=== PATIENT | female | born 1945 | race Caucasian/White ===

== ENCOUNTER → 2020-01-02 15:51 | Outpatient (CLI) | payer MEDICARE, SELFPAY ==
[2017-06-29 13:55] VITALS: BMI 23.0
[2020-01-02 16:13] LABS: Absolute Neutrophil Count 5.8 X10^3/uL (2.0-7.7); Basophil# 0.03 X10^3/uL; Basophil% 0.4 % (0-1); Eosinophil# 0.04 X10^3/uL; Eosinophils% 0.5 % (0-5); Hematocrit 38.8 % (37-47); Lymphocyte % 15.9 % (19-41); Mean Corp Hgb Conc 30.9 g/dL (32-36); Mean Corpuscular Hgb 27.3 pg (27.0-32.0); Mean Corpuscular Volume 88.4 fL (81-99); Mean Platelet Vol. 11.7 fl (6.2-12.0); Monocyte# 0.47 X10^3/uL; Monocyte% 6.2 % (0-10); NRBC Flagged by Analyzer 0 % (0-5); Neutrophil % 76.6 % (47-70); Platelet Count 318 K/mm3 (150-450); RBC Distribution Width CV 13.2 % (11.6-14.6); RBC Distribution Width SD 42.7 fl (35.1-43.9); Red Blood Count 4.39 M/mm3 (4.2-5.4); White Blood Count 7.6 K/mm3 (4.4-11.0)
[2020-01-02 16:52] LABS: Erythrocyte Sedimentation Rate > 130 mm/hr (0-30)
== END ==
PROVIDERS: PCP Family Medicine; Referring Provider Ophthalmology; Visit Provider Ophthalmology
DX: M31.6 Other giant cell arteritis (principal)
CPT/HCPCS: 36415; 85025; 85652; 86140

== ENCOUNTER 2020-01-05 17:26 | Emergency (ER) | payer MEDICARE, SELFPAY ==
[2020-01-05 17:27] VITALS: BP 151/76; PULSE 55; RESP 18; TEMP 36.5; O2SAT 97; BMI 24.0
--- NOTE | 2020-01-05 18:51 | ED.DCSUM_ITS ---
- ER Visit Summary Date of Service: 01/05/20 Chief Complaint: Blurred vision to right eye History of Present Illness: The patient is a 74 F who presents with blurred vision to her right eye that patient saw her lighting engineering technician today who believes she has temporal arteritis. Patient had an outpatient sed rate and CRP done that were extremely elevated. Patient has been taking oral prednisone but when the lighting engineering technician saw the lab results he arranged for IV Solu-Medrol infusions for the next 2 days and referred the patient to the emergency department for infusion of Solu-Medrol today. He also arrange for a temporal artery biopsy within the next 7 to 10 days. Patient denies any loss of vision. Physical Examination: Vital signs are stable. Patient is afebrile. Patient is in no acute distress. Pupils are equal, round, and reactive to light bilaterally. Extraocular muscles are intact. Oral mucosa is pink and moist. Neck is supple. Trachea is midline. There is no JVD. Heart was regular rate and rhythm. Lungs are clear and equal bilaterally. Abdomen is soft and n ontender. Cranial nerves II through XII are intact. There are no focal motor or sensory deficits. Emergency Department Course and Treatment: Patient was given 1 g of Solu-Medrol IV here. Patient was instructed to follow-up for the next 2 days with IV Solu- Medrol infusions as scheduled. Patient was instructed to follow-up with her temporal artery biopsy as scheduled. Patient was instructed to return if worse in any way. Patient understood and was agreeable with the plan. All questions were answered. Disposition: Discharge home Impression: Temporal arteritis This note was generated with [employer] dictation software. It may contain incorrect words, spelling, and punctuation that were not noted in review of the chart prior to signing ED Disposition - Plan for ED Patient: Disposition: Home or Assisted Living Diagnosis: Temporal arteritis Instructions: ED Arteritis Temporal Referrals: Abdirashid Lynch MD [Primary Care Provider] - Keep Zackery appointment
[2020-01-05 19:10] VITALS: BP 145/61; PULSE 50; RESP 16; O2SAT 96
[2020-01-05 20:00] VITALS: BP 139/69; PULSE 52; RESP 18; TEMP 36.7; O2SAT 97
== END 2020-01-05 20:11 | disposition home or self-care (01) ==
LOC: ED 19:06
PROVIDERS: Emergency Provider Emergency Medicine; PCP Ophthalmology
DX: M31.6 Other giant cell arteritis (principal); I10 Essential (primary) hypertension; Z79.82 Long term (current) use of aspirin; Z79.899 Other long term (current) drug therapy; F17.200 Nicotine dependence, unspecified, uncomplicated
CPT/HCPCS: 96365; 96366; 99284; J7050; A4216; J2930

== ENCOUNTER → 2020-01-06 13:16 | Outpatient (CLI) | payer MEDICARE, SELFPAY ==
[2020-01-05 17:27] VITALS: BMI 24.0
[2020-01-06 13:48] VITALS: BP 136/63; PULSE 65; RESP 16; TEMP 36.7; BMI 25.4
[2020-01-06 15:19] VITALS: BP 134/56
== END ==
PROVIDERS: PCP Family Medicine; Referring Provider Ophthalmology; Visit Provider Ophthalmology
DX: M31.6 Other giant cell arteritis (principal)
CPT/HCPCS: 96365; 96366; J7050; A4216; J2930

== ENCOUNTER → 2020-01-07 13:17 | Outpatient (CLI) | payer MEDICARE, SELFPAY ==
[2020-01-05 17:27] VITALS: BMI 24.0
[2020-01-06 13:48] VITALS: BMI 25.4
[2020-01-07 13:24] VITALS: BP 138/89; PULSE 65; RESP 18; TEMP 37.2; O2SAT 97; BMI 25.4
[2020-01-07 15:17] VITALS: BP 140/69; PULSE 60; RESP 16
== END ==
PROVIDERS: PCP Ophthalmology; Referring Provider Ophthalmology; Visit Provider Ophthalmology
DX: M31.6 Other giant cell arteritis (principal)
CPT/HCPCS: 96365; 96366; J7050; A4216; J2930

== ENCOUNTER 2020-01-09 07:18 | Day surgery (SDC) | payer MEDICARE, SELFPAY ==
[2020-01-06 13:48] VITALS: BMI 25.4
[2020-01-08 10:31] VITALS: BMI 25.4
[2020-01-08 15:22] LABS: Probe Check PASS; Specimen Processing Control PASS
[2020-01-09] VITALS (7 sets, daily range): BP systolic 146–158; BP diastolic 61–73; PULSE 42–45; RESP 16–18; TEMP 36.4–37.7; O2SAT 98–100; BMI 24.4
--- NOTE | 2020-01-09 | TEM_PTH ---
PATIENT: HOPE APODACA LOC: [facility] U#:[id number] AGE/SX: 74/F ROOM: RE01/09/[address]: Dr. Pancho Farrar MD : 1945 BED: DIS: 01/09/2020 SPEC #: [id number] RECD: 01/09/20 13:02 STATUS: JANELL FERNANDO #: [id number] DIANA: 01/09/20 00:[address]: Pancho Farrar DEPT: SURGICAL PATHOLOGY RECD BY: Mick Wren ENTERED: 01/09/20 13:02 SP TYPE: TEMPORAL OTHR DR: MD Dr. Abdirashid Harrison MD Tissues: Temporal region Procedures: Elastin Stain (control) Special Stain Group II Surgery Specimen Level IV HEADER OPERATION: Temporal artery biopsy PRE-OP DIAGNOSIS: Right temporal arteritis TISSUE SUBMITTED: Right temporal artery biopsy MICROSCOPIC DIAGNOSIS Right temporal artery, biopsy: Consistent with giant cell arteritis. See microscopic description and comment. ABBEY:marleny 01/12/20 COMMENT Correlation with clinical findings and appropriate follow up are necessary. The results are reported to Dr. Farrar's office on 01/12/20 at 9:45 a.m. Case has been reviewed in consultation with Dr. Smith who concurs with the above diagnosis. IDC:AM MICROSCOPIC DESCRIPTION Slides are reviewed. The specimen shows a segment of blood vessels with focal transmural and perivascular chronic inflammatory cell infiltrates consisting of lymphocytes, histiocytes and giant cells. The inflammatory cell infiltrates are more prominent in the media of blood vessels. Mild perivascular infiltrate is noted. Elastic stain with matched control is used in the evaluation and shows fragmentation of elastic fibrin in the vessel wall. Mild to moderate intimal hyperplasia is also noted. GROSS DESCRIPTION Received in fixative is one container labeled with the patient's name and designated right temporal artery biopsy. The specimen consists of a tubular piece of menendez soft tissue measuring 2 cm in length and 0.1 cm in diameter. The entire specimen is submitted in one cassette. It will be serially sectioned at the time of embedding. / ABBEY:marleny 01/09/20 TC:3 CPT: 10787, 37713
[2020-01-09] MEDS: Lactated Ringers 1,000 ML 100 ML IV (07:59)
--- NOTE | 2020-01-09 08:58 | PCM.HP.BLA ---
Problem List (1) Temporal arteritis Status: Acute History and Physical Date of Admission: 01/09/20 Intake Visit Reasons: Temporal artery biopsy Chief Complaint: temporal artery biopsy Photo Checker And Assembler Required: No Is patient in pain?: No Allergies No Known Allergies Allergy (Verified 01/08/20 10:27) Medications amlodipine 5 mg tablet 5 mg PO DAILY 01/08/20 [History Confirmed 01/08/20] aspirin 81 mg tablet,delayed release 81 mg PO DAILY 01/08/20 [History Confirmed 01/08/20] atenolol 25 mg tablet 25 mg PO DAILY 01/08/20 [History Confirmed 01/08/20] lisinopril 10 mg tablet 30 mg PO DAILY tab 01/08/20 [History Confirmed 01/08/20] prednisone 20 mg tablet 20 mg PO TID tab 01/08/20 [History Confirmed 01/08/20] [facility] Medical History (Updated 01/08/20 @ 10:[address] Pancho Farrar MD) Temporal arteritis (Acute) Anxiety (Acute) Arthritis (Acute) Rheumatoid arthritis (Acute) Hypertension (Chronic) Surgical History (Updated 01/08/20 @ 10:16 by Karey Etienne) History of left cataract surgery (Acute) Family History (Updated 01/08/20 @ 10:19 by Karey Etienne) Father Heart disease Mother Hypertension Grandmother Hypertension CVA (cerebral vascular accident) Social History (Updated 01/08/20 @ 10:[address] Pancho Farrar MD) Smoking Status: Never smoker alcohol intake: never substance use type: does not use HPI HPI HPI: HOPE APODACA, is a 74 F who presents to the office today for surgical consultation regarding potential temporal arteritis and request for a right temporal artery biopsy. The patient is referred by her forestry fire aid Dr. Nicolas Hart and a written copy my surgical consult recommendations will return to him. By report the patient apparently recently had left cataract surgery. She acutely developed blurred vision of the right eye. She was noted to have marked elevation of her sed rate as well as papilledema on the right. She has now had 3 IV Solu-Medrol infusions through the [facility] emergency room. We actually have been trying to get her to come to the office for 3 days for consultation. It is of note that on January 02, 2020 her sed rate was greater than 130. CBC otherwise unremarkable. Her C-reactive protein was 55.9. She does not really complain of any right buddhist discomfort or headache. HPI HPI HPI: HOPE APODACA, is a 74 F who presents to the office today for ROS General General: No weight change, appetite, fatigue, colon cancer, breast cancer or weakness HEENT HEENT: Yes eye surgery; no difficulty swallowing, eye injury, swollen glands or hoarseness Endo Endocrine: No thyroid disease, diabetes mellitus, thyroid cancer, Hair loss, heat intolerance or cold intolerance Skin Skin: No rash or changing moles Breast Breast: No left breast lump, right breast lump, nipple discharge, breast pain, abnormal mammogram, abnormal US or breast enlargement Musc Musculoskeletal: Yes arthritis and rheumatoid arthritis; no back problems, gout or joint pain Cardio Cardiovascular: Yes high blood pressure; no murmur, pacemaker, heart disease, atrial fibrillation, heart attack, heart stent, palpitations, shortness of breat with exertion or chest pain Psych Psychiatric: Yes anxiety; no depression or hearing voices Resp Respiratory: No shortness of breath, No sleep apnea, No cough, No COPD, No asthma, No emphysema, No wheezing Gastro Gastrointestinal: No abdominal pain, No nausea or vomiting, No diarrhea, No constipation, No blood in stool, No acid reflux, No hemorrhoids, No ulcers, No gallbladder problem, No black,tarry stools Brett Hematologic: No blood thinners, No blood disorders, No bleeding, No anemia, No blood clots Neuro Neurologic: No system reviewed and no additional complaints, except as docu, No as per HPI, No abnormal walking, No abnormal hearing, No abnormal movements, No abnormal speech, No behavioral changes, No burning sensations, No confusion, No seizure-like activity, No unsteadiness, No dizziness, No localized weakness, No frequent falls, No headache(s), No lack of coordination, No loss of vision, No memory loss, No numbness, No other visual disturbances, No radiating pain, No restless legs, No sensory deficit, No fainting, No tingling, No tremor(s), No weakness, No other Exam Const General: cooperative, comfortable Nutritional Appearance: average body habitus Orientation: alert HENMT Other: Right temporal artery is palpable at 1-2+. Left temporal artery is 3+. There is no particular ropiness on the right there is no erythema no particular tenderness Chest Chest palpation & inspection: normal inspection of the chest Breast Palpation: No nipple discharge Resp Effort & Inspection: normal respiratory effort Auscultation: clear to auscultation bilaterally Cardio Rate: regular rate Rhythm: regular rhythm Heart Sounds: no murmurs GI Palpation: soft Extrem General: no calf tenderness Psych Affect: normal affect Assessment & Plan Problems 1. Temporal arteritis M31.6 Plan 74-year-old female. Clinical suspicion of right temporal arteritis. With the patient's daughter present of discuss right temporal artery biopsy. I anticipate performing this with monitored anesthesia care and local anesthetic. I have discussed the technique, benefit, risks, alternatives. We will have her not take her aspirin tomorrow morning. We will have her hold her prednisone tomorrow morning until after the procedure. She has had an opportunity to ask and have questions answered. We will try to expedite the biopsy technique. I appreciate the opportunity of assisting with her surgical care Cc: Dr. Nicolas Hart and Dr. Abdirashid Farrar M.D., F.A.C.S. Coding Level of Care Code 05735 Diagnoses Temporal arteritis M31.6 01/08/20 1040 <Electronically signed by Pancho Farrar MD> Date Pancho Farrar MD I have re-examined the patient. There are no clinical changes since date of exam. Procedure Criteria Procedure Type: Essential Procedure Essential: Yes Criteria Statement: On 10/21/2019 the [facility] ([facility]) Public Order signed by [facility] Director Lesley Albright M.D., regarding the Management of Non-Essential Surgeries and Procedures for the purpose of preserving Personal Protective Equipment (PPE) and critical hospital capacity and resources within [place] went into effect as of 10/22/2019 at 5:00PM. According to the [facility] Public Order: This action will remain in full force and effect until the State of Emergency declared by the Governor no longer exists or the Director of the [facility] rescinds or modifies this Order. This [facility] order stated all non-essential or elective surgeries and procedures that utilize PPE should be delayed unless there is undue risk to the current or future health of a patient. After reviewing the aforementioned [facility] Public Order and the patient's clinical case, I have determined that the scheduled procedure meets the criteria to go forward. Risk to Patient if Procedure Delayed: Risk of rapidly worsening to severe symptoms if delayed
[2020-01-09] MEDS: Lubricating Jelly 60 GM Tube 30 GM TOPICAL (09:28)
[2020-01-09] MEDS: Bupivacaine Mpf 0.5% 30 ML VIAL (09:35)
--- NOTE | 2020-01-09 10:15 | PCM.OPRPT ---
Problem List (1) Temporal arteritis Status: Acute Report of Operation Date of Procedure: 01/09/20 Pre-Operative Diagnosis: Right temporal arteritis Post-Operative Diagnosis: Pathology pending Surgery/Procedure Performed:: Right temporal artery biopsy Description of Surgical Findings:: Timeout and informed consent was obtained. 74-year-old female was taken the operating placed by the table underwent monitored anesthesia care. The right confucianism area was clipper and Betadine prepped. 1% lidocaine mixed 50-50 with 0.5% Marcaine was used as a local anesthetic. Throughout the procedure 9 cc was used. Perirectal he has a vertical incision was created over the palpable pulse sharp dissection carried down through the subcutaneous tissue fascia incised temporal artery identified with very tedious careful sharp and blunt dissection was dissected free. More cephalad the artery appeared to be more firm and fibrosed. I dissected free 4 cm. I secured it proximally and distally with 4-0 Vicryl ligatures. Side branches were secured with needed with hemoclips. The specimen was immediately submitted in formalin. Hemostasis was intact. The wound was closed with a running septic or 5-0 Vicryl. Dermabond was applied followed by Telfa and tape dressing. Sponge and instrument and needle counts were reported to the surgeon to be correct. Blood loss was minimal. Specimens right temporal artery. Drains none. Blood loss minimal. Pancho Farrar M.D., F.A.C.S. Type of Anesthesia:: Local MAC Anesthesiologist: Denny Medina
--- NOTE | 2020-01-09 11:56 | DCINST_ITS ---
Discharge Diet: Light diet - advance as tolerated - if you have questions about your diet instructions, please talk to you doctor. Discharge Activity: May Not Drive - for 1 day or while taking narcotic pain medicine. May shower in (days): 1 Lifting Restrictions: 10 pounds Call your doctor if your incision/area has: Continuous Slow Oozing, Sudden Increased Bleeding, Increased Pain/ Swelling, Increased Redness, Foul Smelling Discharge Call your doctor if you observe: Fever of 101 or Higher Suture Line Care: Avoid Pulling/Pushing, Avoid Pinching/Bending Additional Dressing/Incision Instructions:: You may remove the gauze dressing tomorrow. You may carefully shower over the surgical glue. Pat the incision dry. The surgical glue should wear off in approximately 1 to 2 weeks. Additional Instructions: You may take all of your routine medicines today except your low-dose aspirin. If there are no issues with bleeding you may resume your 81 mg aspirin tomorrow Allergies/Adverse Reactions: Allergies No Known Allergies Allergy (Verified 01/09/20 07:40) Medications to take at Discharge amlodipine 5 mg tablet 5 mg PO DAILY 01/08/20 aspirin 81 mg tablet,delayed release 81 mg PO DAILY 01/08/20 atenolol 25 mg tablet 25 mg PO DAILY 01/08/20 lisinopril 10 mg tablet 30 mg PO DAILY tab 01/08/20 prednisone 20 mg tablet 20 mg PO TID tab 01/08/20 Acetaminophen [Tylenol Tablet] 650 mg PO Q6H PRN PRN tab 01/09/20 Hydrocodone Bitart/Apap 5-325 [[place] 5/325] 1 - 2 tab PO Q4H PRN PRN 2 Days #4 tab 01/09/20 The following prescriptions were given: Hydrocodone Bitart/Apap 5-325 [[place] 5/325] 1 - 2 tab PO Q4H PRN PRN 2 Days #4 tab PRN Reason: Pain Score 1-05/15 Transmission Status: Received by [facility]/pharmacy #[id number] Primary Care Physician: Abdirashid Lynch MD [Primary Care Provider] - Test Results: Test results from this visit will be discussed in further detail at your follow- up appointment, if applicable. Please Follow Up With: Pancho Farrar MD - [phone]
== END 2020-01-09 12:15 | disposition home or self-care (01) ==
LOC: SDC 07:19 → AC 07:20
PROVIDERS: Physician Assistant; PCP Family Medicine; Referring Provider Surgery; Visit Provider Surgery
PROC: (CPT 37609; principal; 2020-01-09 09:15)
DX: M31.6 Other giant cell arteritis (principal); Z11.59 Encounter for screening for other viral diseases; I10 Essential (primary) hypertension; F41.9 Anxiety disorder, unspecified; M06.9 Rheumatoid arthritis, unspecified; Z78.0 Asymptomatic menopausal state; Z79.82 Long term (current) use of aspirin; Z79.899 Other long term (current) drug therapy; F17.200 Nicotine dependence, unspecified, uncomplicated
CPT/HCPCS: 00352; 37609; 87635; 88305; 88313; G2023; J7120; U0003

== ENCOUNTER → 2020-01-20 12:55 | Outpatient (CLI) | payer MEDICARE, SELFPAY ==
[2020-01-09 07:46] VITALS: BMI 24.4
--- NOTE | 2020-01-20 13:25 | RAD_ITS ---
STUDY: X-RAY CHEST REASON FOR EXAM: Female, 74 years old. Hypertension TECHNIQUE: PA and lateral views of the chest. COMPARISON: None. FINDINGS: The lungs are hyperexpanded with chronic interstitial changes, no superimposed acute pulmonary process. There is no demonstrated pleural abnormality. Normal size heart. Normal mediastinum and ade. Normal visualized pulmonary arteries. Normal visualized aortic arch and descending thoracic aorta. Normal visualized thoracic spine. Normal visualized ribs, clavicles, and shoulders. There is no demonstrated abnormality of the visualized soft tissue structures of the upper abdomen. RAD/Chest PA and Lateral IMPRESSION: Hyperexpanded lungs, no superimposed acute pulmonary process Electronically Signed: Oral Power MD at 16:47 EDT , Service support ,
[2020-01-20 13:58] LABS: Erythrocyte Sedimentation Rate 20 mm/hr (0-30)
[2020-01-20 14:02] LABS: Absolute Neutrophil Count 17.3 X10^3/uL (2.0-7.7); Basophil# 0.01 X10^3/uL; Basophil% 0.1 % (0-1); Hematocrit 39.7 % (37-47); Hemoglobin 12.5 g/dL (12.0-15.0); Lymphocyte % 1.7 % (19-41); Mean Corp Hgb Conc 31.5 g/dL (32-36); Mean Corpuscular Hgb 27.3 pg (27.0-32.0); Mean Corpuscular Volume 86.7 fL (81-99); Mean Platelet Vol. 13.3 fl (6.2-12.0); Monocyte# 0.37 X10^3/uL; NRBC Flagged by Analyzer 0 % (0-5); Neutrophil # 17.32 X10^3/uL (2.7-7.7); Neutrophil % 95.4 % (47-70); POSITIVE DIFFERENTIAL YES; Platelet Count 182 K/mm3 (150-450); RBC Distribution Width SD 48.7 fl (35.1-43.9); Red Blood Count 4.58 M/mm3 (4.2-5.4); White Blood Count 18.2 K/mm3 (4.4-11.0)
[2020-01-20 14:03] LABS: Differential Indicated SCAN CRITERIA MET
[2020-01-20 14:21] LABS: ALB/GLOB Ratio 0.9 RATIO (0.9-2.4); AST(SGOT) 12 U/L (15-37); Alanine Aminotransfer ALT/SGPT 23 U/L (13-56); Albumin, Serum 3.2 g/dL (3.2-5.0); Alkaline Phosphatase 93 U/L (45-117); Anion Gap 6 (5-15); BUN 24 mg/dL (7-18); CRP < 2.90 mg/L (0.0-3.0); Calcium,Total 8.7 mg/dL (8.5-10.1); Chloride 101 mmol/L (98-107); EST Glomerular Filtration Rate 58 mL/min (>60); Est Glom Filt Rate - Afr Amer 70 mL/min (>60); Globulin 3.5 g/dL (2.2-4.2); Glucose 154 mg/dL (74-106); Potassium 4.5 mmol/L (3.5-5.1); Protein, Total 6.7 g/dL (6.4-8.2); Rheumatoid Factor < 10.0 IU/mL (<15); Sodium Level 135 mmol/L (136-145)
[2020-01-20 14:51] LABS: Hepatitis B Surface Antibody Non-Reactive; Hepatitis B Surface Antigen Non-Reactive (Nonreactive); Hepatitis C Antibody Non-Reactive (Nonreactive)
[2020-01-23 12:07] LABS: QNTFERON TB Mitogen Value 0.19 IU/mL (.); QNTFERON TB Nil Value 0.03 IU/mL (.); QNTFERON TB1+ Ag Value 0.04 IU/mL (.); QNTFERON TB2+ Ag Value 0.02 IU/mL (.)
[2020-01-26 05:24] LABS: CCP IgG Antibodies 4 units (0-19); QNTIFERON TB Positive Criteria Indeterminate (Negative)
== END ==
PROVIDERS: PCP Family Medicine; Referring Provider Internal Medicine Rheumatology; Visit Provider Internal Medicine Rheumatology
DX: M31.6 Other giant cell arteritis (principal); M47.892 Other spondylosis, cervical region; I10 Essential (primary) hypertension
CPT/HCPCS: 36415; 71046; 80053; 85025; 85652; 86140; 86200; 86431; 86480; 86706; 86803; 87340

== ENCOUNTER → 2020-02-19 14:12 | Outpatient (CLI) | payer MEDICARE, SELFPAY ==
[2020-01-09 07:46] VITALS: BMI 24.4
[2020-02-19 14:54] LABS: Erythrocyte Sedimentation Rate 14 mm/hr (0-30)
[2020-02-19 15:40] LABS: CRP < 2.90 mg/L (0.0-3.0)
== END ==
PROVIDERS: PCP Family Medicine; Referring Provider Internal Medicine Rheumatology; Visit Provider Internal Medicine Rheumatology
DX: M31.6 Other giant cell arteritis (principal); M47.892 Other spondylosis, cervical region; I10 Essential (primary) hypertension
CPT/HCPCS: 36415; 85652; 86140

== ENCOUNTER → 2020-03-08 12:53 | Outpatient (CLI) | payer MEDICARE, SELFPAY ==
[2020-01-09 07:46] VITALS: BMI 24.4
[2020-03-08 14:00] LABS: Erythrocyte Sedimentation Rate 19 mm/hr (0-30)
[2020-03-08 14:25] LABS: CRP < 2.90 mg/L (0.0-3.0)
== END ==
PROVIDERS: PCP Family Medicine; Referring Provider Internal Medicine Rheumatology; Visit Provider Internal Medicine Rheumatology
DX: M31.6 Other giant cell arteritis (principal); Z79.899 Other long term (current) drug therapy; M47.892 Other spondylosis, cervical region; I10 Essential (primary) hypertension
CPT/HCPCS: 36415; 85652; 86140

== ENCOUNTER → 2020-03-24 13:55 | Outpatient (CLI) | payer MEDICARE, SELFPAY ==
[2020-01-09 07:46] VITALS: BMI 24.4
[2020-03-24 14:36] LABS: Erythrocyte Sedimentation Rate 13 mm/hr (0-30)
[2020-03-24 14:43] LABS: CRP < 2.90 mg/L (0.0-3.0)
== END ==
PROVIDERS: PCP Family Medicine; Referring Provider Internal Medicine Rheumatology; Visit Provider Internal Medicine Rheumatology
DX: M31.6 Other giant cell arteritis (principal); Z79.899 Other long term (current) drug therapy; M47.892 Other spondylosis, cervical region; I10 Essential (primary) hypertension
CPT/HCPCS: 36415; 85652; 86140

== ENCOUNTER → 2020-04-22 14:00 | Outpatient (CLI) | payer MEDICARE, SELFPAY ==
[2020-01-09 07:46] VITALS: BMI 24.4
[2020-04-22 15:03] LABS: Erythrocyte Sedimentation Rate 5 mm/hr (0-30)
[2020-04-22 15:17] LABS: CRP < 2.90 mg/L (0.0-3.0)
== END ==
PROVIDERS: PCP Family Medicine; Referring Provider Internal Medicine Rheumatology; Visit Provider Internal Medicine Rheumatology
DX: M31.6 Other giant cell arteritis (principal); Z79.899 Other long term (current) drug therapy; M47.892 Other spondylosis, cervical region; I10 Essential (primary) hypertension
CPT/HCPCS: 36415; 85652; 86140

== ENCOUNTER 2020-04-25 10:17 | Emergency (ER) | payer MEDICARE, SELFPAY ==
[2020-01-09 07:46] VITALS: BMI 24.4
[2020-04-25 10:19] VITALS: BP 147/73; PULSE 79; RESP 17; TEMP 36.9; O2SAT 100; BMI 24.8
--- NOTE | 2020-04-25 10:28 | ED.VIS.GEN ---
History of Present Illness Chief Complaint: Cellulitis Narrative: 75-year-old female with history of temporal cell arteritis currently being treated with an extended prednisone taper presents today because she has had some swelling in her legs due to her steroid use, and last night something fell out of the cabinet and hit her in the right tibia. There was a small break in the skin. Overnight this has become red and inflamed. She does not have any systemic signs or symptoms. She has no history of MRSA. - Past Medical History (1) Temporal arteritis Status: Chronic Past Medical History - Allergies and Home Meds Allergies/Adverse Reactions: Allergies No Known Allergies Allergy (Verified 04/25/20 10:18) Primary Care Physician: Abdirashid Lynch MD [Primary Care Provider] - Past Medical History: - - Pretension, rheumatoid arthritis, anxiety Surgical History: noncontributory Lives: Spouse/ Significant Other Smoking Status: Current every day smoker Alcohol: None Drugs: None Review of Systems General: Denies: Chills, Fever, Sweats Eyes: Denies: Visual changes - bilaterally, Diplopia ENT: Denies: Rhinorrhea, Sore throat Cardiovascular: Denies: Chest pain, Palpitations Respiratory: Denies: Dyspnea, Cough, Dyspnea on exertion Gastrointestinal: Denies: Abdominal pain, Nausea, Vomiting, Diarrhea, Melena, Hematochezia Genitourinary: Denies: Dysuria, Hematuria, Frequency Musculoskeletal: Reports: - - Lower extremity swelling Skin: Reports: Rash, - - Erythema over the right tibia with a small break in the skin. Neurological: Denies: Headache, Weakness Physical Exam Vital Signs/Narrative: Vital Signs Temp Pulse Resp BP Pulse Ox 04/25/20 10:19 98.4 F 79 17 147/73 H 100 Inital Vital Signs reviewed: Yes General: Well nourished, No Acute Distress Head: Normocephalic, Atraumatic ENT: Moist mucous membranes, No rhinorrhea Cardiovascular: Regular rate, Regular rhythm Respiratory: No distress, CTA bilaterally Extremities: Tenderness - Is to palpation over right anterior tibia. There is approximately a 10 x 10 cm area of erythema and warmth with a central small skin flap approximately half a centimeter. There is no fluctuance., Edema. Negative for: Calf Tenderness Skin: Rash, - - Rash as described above Neurological: Alert, Oriented x3 Psychological: Normal affect, Normal Mood Diagnostic/Tx/Re-eval - Medical Decision Making Patient has what looks to be early cellulitis on the right tibia likely due to the break in the skin last evening. She is also on steroids which makes her skin friable. Patient will be started on Keflex with the first dose given in the ED. She was also was prescribed bacitracin and counseled on dressing changes. She is given return precautions. Patient stable for discharge at this time. Impression: 1. Cellulitis right tibia ED Disposition - Plan for ED Patient: Disposition: Home or Assisted Living Instructions: Cellulitis Prescriptions: Bacitracin Ointment 1 applic TOPICAL BID 10 Days #1 tube Transmission Status: Pending to [id number] Cephalexin [Keflex] 500 mg PO Q6 #40 cap Transmission Status: Pending to [id number] Referrals: Abdirashid Lynch MD [Primary Care Provider] -
[2020-04-25] MEDS: Cephalexin 250 MG Capsule 500 MG PO (10:43)
[2020-04-25 10:44] VITALS: BP 147/73; PULSE 79; RESP 18
[2020-04-25 10:47] VITALS: BP 147/73; PULSE 79; RESP 18; TEMP 36.9; O2SAT 100
== END 2020-04-25 10:58 | disposition home or self-care (01) ==
LOC: ED 10:41
PROVIDERS: Emergency Provider Student in an Organized Health Care Education/Training Program; PCP Family Medicine
DX: L03.115 Cellulitis of right lower limb (principal); M31.6 Other giant cell arteritis; F41.9 Anxiety disorder, unspecified; M06.9 Rheumatoid arthritis, unspecified; Z79.899 Other long term (current) drug therapy; F17.200 Nicotine dependence, unspecified, uncomplicated
CPT/HCPCS: 99283

== ENCOUNTER → 2020-05-24 13:42 | Outpatient (CLI) | payer MEDICARE, SELFPAY ==
[2020-04-25 10:19] VITALS: BMI 24.8
[2020-05-24 14:04] LABS: Erythrocyte Sedimentation Rate 4 mm/hr (0-30)
[2020-05-24 14:24] LABS: CRP < 2.90 mg/L (0.0-3.0)
== END ==
PROVIDERS: PCP Family Medicine; Referring Provider Internal Medicine Rheumatology; Visit Provider Internal Medicine Rheumatology
DX: M31.6 Other giant cell arteritis (principal); Z79.899 Other long term (current) drug therapy; M47.892 Other spondylosis, cervical region; I10 Essential (primary) hypertension
CPT/HCPCS: 36415; 85652; 86140

== ENCOUNTER → 2020-06-28 13:39 | Outpatient (CLI) | payer MEDICARE, SELFPAY ==
[2020-06-28 15:19] LABS: CRP 4.64 mg/L (0.0-3.0)
[2020-06-28 15:29] LABS: Erythrocyte Sedimentation Rate 7 mm/hr (0-30)
== END ==
PROVIDERS: PCP Family Medicine; Referring Provider Internal Medicine Rheumatology; Visit Provider Internal Medicine Rheumatology
DX: M31.6 Other giant cell arteritis (principal); Z79.899 Other long term (current) drug therapy; M47.892 Other spondylosis, cervical region; I10 Essential (primary) hypertension
CPT/HCPCS: 36415; 85652; 86140

== ENCOUNTER → 2020-08-12 14:06 | Outpatient (CLI) | payer MEDICARE, SELFPAY ==
[2020-08-12 14:56] LABS: Erythrocyte Sedimentation Rate 13 mm/hr (0-30)
[2020-08-12 15:18] LABS: CRP < 2.90 mg/L (0.0-3.0)
== END ==
PROVIDERS: PCP Family Medicine; Visit Provider Internal Medicine Rheumatology
DX: M31.6 Other giant cell arteritis (principal); Z79.899 Other long term (current) drug therapy; M47.892 Other spondylosis, cervical region; I10 Essential (primary) hypertension
CPT/HCPCS: 36415; 85652; 86140

== ENCOUNTER → 2020-10-08 13:46 | Outpatient (CLI) | payer MEDICARE, SELFPAY ==
[2020-10-08 15:26] LABS: Erythrocyte Sedimentation Rate 6 mm/hr (0-30)
[2020-10-08 15:34] LABS: CRP < 2.90 mg/L (0.0-3.0)
== END ==
PROVIDERS: PCP Family Medicine; Referring Provider Internal Medicine Rheumatology; Visit Provider Internal Medicine Rheumatology
DX: M31.6 Other giant cell arteritis (principal); Z79.899 Other long term (current) drug therapy; M47.892 Other spondylosis, cervical region; I10 Essential (primary) hypertension
CPT/HCPCS: 36415; 85652; 86140

== ENCOUNTER → 2020-11-08 13:50 | Outpatient (CLI) | payer MEDICARE, SELFPAY ==
[2020-11-08 14:32] LABS: Erythrocyte Sedimentation Rate 12 mm/hr (0-30)
[2020-11-08 14:56] LABS: CRP < 2.90 mg/L (0.0-3.0)
== END ==
PROVIDERS: PCP Family Medicine; Referring Provider Internal Medicine Rheumatology; Visit Provider Internal Medicine Rheumatology
DX: M31.6 Other giant cell arteritis (principal); Z79.899 Other long term (current) drug therapy; M47.892 Other spondylosis, cervical region; I10 Essential (primary) hypertension
CPT/HCPCS: 36415; 85652; 86140

== ENCOUNTER → 2021-01-07 13:47 | Outpatient (CLI) | payer MEDICARE, SELFPAY ==
[2021-01-07 14:45] LABS: Erythrocyte Sedimentation Rate 10 mm/hr (0-30)
[2021-01-07 15:05] LABS: CRP 5.05 mg/L (0.0-3.0)
== END ==
PROVIDERS: PCP Family Medicine; Referring Provider Internal Medicine Rheumatology; Visit Provider Internal Medicine Rheumatology
DX: M31.6 Other giant cell arteritis (principal); Z79.899 Other long term (current) drug therapy; M47.892 Other spondylosis, cervical region; I10 Essential (primary) hypertension
CPT/HCPCS: 36415; 85652; 86140

== ENCOUNTER → 2021-03-09 13:47 | Outpatient (CLI) | payer MEDICARE, SELFPAY ==
[2021-03-09 16:23] LABS: CRP < 2.90 mg/L (0.0-3.0)
[2021-03-09 16:24] LABS: Erythrocyte Sedimentation Rate 6 mm/hr (0-30)
== END ==
PROVIDERS: PCP Family Medicine; Referring Provider Internal Medicine Rheumatology; Visit Provider Internal Medicine Rheumatology
DX: M31.6 Other giant cell arteritis (principal); Z79.899 Other long term (current) drug therapy; I10 Essential (primary) hypertension; M47.892 Other spondylosis, cervical region
CPT/HCPCS: 36415; 85652; 86140

== ENCOUNTER → 2021-05-09 13:46 | Outpatient (CLI) | payer MEDICARE, SELFPAY ==
[2021-05-09 15:30] LABS: CRP 4.14 mg/L (0.0-3.0)
[2021-05-09 15:38] LABS: Erythrocyte Sedimentation Rate 14 mm/hr (0-30)
== END ==
PROVIDERS: PCP Family Medicine; Referring Provider Internal Medicine Rheumatology; Visit Provider Internal Medicine Rheumatology
DX: M31.6 Other giant cell arteritis (principal); Z79.899 Other long term (current) drug therapy; M47.892 Other spondylosis, cervical region; I10 Essential (primary) hypertension
CPT/HCPCS: 36415; 85652; 86140

== ENCOUNTER → 2021-07-22 13:52 | Outpatient (CLI) | payer MEDICARE, SELFPAY ==
[2021-07-22 14:48] LABS: Erythrocyte Sedimentation Rate 10 mm/hr (0-30)
[2021-07-22 15:20] LABS: CRP < 2.90 mg/L (0.0-3.0)
== END ==
PROVIDERS: PCP Family Medicine; Referring Provider Internal Medicine Rheumatology; Visit Provider Internal Medicine Rheumatology
DX: M31.6 Other giant cell arteritis (principal); Z79.899 Other long term (current) drug therapy; M47.892 Other spondylosis, cervical region; I10 Essential (primary) hypertension
CPT/HCPCS: 36415; 85652; 86140

== ENCOUNTER 2021-10-07 13:52 | Outpatient (CLI) | payer MEDICARE, SELFPAY ==
[2021-10-07 15:34] LABS: Erythrocyte Sedimentation Rate 10 mm/hr (0-30)
[2021-10-07 15:47] LABS: CRP < 2.90 mg/L (0.0-3.0)
== END 2021-10-07 23:59 | disposition home or self-care (01) ==
LOC: LAB 13:54
PROVIDERS: PCP Family Medicine; Referring Provider Internal Medicine Rheumatology; Visit Provider Internal Medicine Rheumatology
DX: M31.6 Other giant cell arteritis (principal); M47.892 Other spondylosis, cervical region; I10 Essential (primary) hypertension; Z79.899 Other long term (current) drug therapy
CPT/HCPCS: 36415; 85652; 86140

== ENCOUNTER → 2022-01-09 | Outpatient (CLI) | payer MEDICARE, SELFPAY ==
[2022-01-09 15:37] LABS: Absolute Lymphocyte Count 1.15 X10^3/uL (0.83-4.51); Absolute Neutrophil Count 8.2 X10^3/uL (2.0-7.7); Basophil# 0.02 X10^3/uL; Basophil% 0.2 % (0-1); Eosinophil# 0.03 X10^3/uL; Eosinophils% 0.3 % (0-5); Hematocrit 39.6 % (37-47); Hemoglobin 12.8 g/dL (12.0-15.0); Lymphocyte # 1.15 X10^3/ul (0.83-4.51); Lymphocyte % 11.5 % (19-41); Mean Corp Hgb Conc 32.3 g/dL (32-36); Mean Corpuscular Hgb 29.3 pg (27.0-32.0); Mean Corpuscular Volume 90.6 fL (81-99); Mean Platelet Vol. 13.7 fl (6.2-12.0); Monocyte# 0.48 X10^3/uL; Monocyte% 4.8 % (0-10); NRBC Flagged by Analyzer 0 % (0-5); Neutrophil # 8.22 X10^3/uL (2.7-7.7); Neutrophil % 82.6 % (47-70); Platelet Count 226 K/mm3 (150-450); RBC Distribution Width SD 50.1 fl (35.1-43.9); Red Blood Count 4.37 M/mm3 (4.2-5.4)
[2022-01-09 15:52] LABS: Erythrocyte Sedimentation Rate 31 mm/hr (0-30)
[2022-01-09 15:58] LABS: ALB/GLOB Ratio 1.1 RATIO (0.9-2.4); AST(SGOT) 13 U/L (15-37); Alanine Aminotransfer ALT/SGPT 14 U/L (13-56); Albumin, Serum 3.4 g/dL (3.2-5.0); Alkaline Phosphatase 72 U/L (45-117); Anion Gap 8 (5-15); BUN 22 mg/dL (7-18); BUN/Creat Ratio 17.3 RATIO (10-20); CRP 8.28 mg/L (0.0-3.0); Calcium,Total 8.9 mg/dL (8.5-10.1); Chloride 109 mmol/L (98-107); Creatinine, Serum 1.27 mg/dL (0.55-1.02); EST Glomerular Filtration Rate 44 mL/min (>60); Est Glom Filt Rate - Afr Amer 53 mL/min (>60); Globulin 3.2 g/dL (2.2-4.2); Glucose 137 mg/dL (74-106); Potassium 4.1 mmol/L (3.5-5.1); Protein, Total 6.6 g/dL (6.4-8.2); Sodium Level 141 mmol/L (136-145)
== END | disposition home or self-care (01) ==
LOC: LAB 13:58
PROVIDERS: PCP Family Medicine; Visit Provider Internal Medicine Rheumatology
DX: M31.6 Other giant cell arteritis (principal); Z79.899 Other long term (current) drug therapy; M47.892 Other spondylosis, cervical region; I10 Essential (primary) hypertension
CPT/HCPCS: 36415; 80053; 85025; 85652; 86140

== ENCOUNTER → 2022-04-12 | Outpatient (CLI) | payer MEDICARE, SELFPAY ==
[2022-04-12 14:45] LABS: Erythrocyte Sedimentation Rate 21 mm/hr (0-30)
[2022-04-12 15:02] LABS: Anion Gap 9 (5-15); BUN 23 mg/dL (7-18); BUN/Creat Ratio 17.7 RATIO (10-20); CRP 3.06 mg/L (0.0-3.0); Calcium,Total 9.5 mg/dL (8.5-10.1); Chloride 107 mmol/L (98-107); EST Glomerular Filtration Rate 42 mL/min (>60); Est Glom Filt Rate - Afr Amer 51 mL/min (>60); Glucose 120 mg/dL (74-106); Potassium 4.2 mmol/L (3.5-5.1); Sodium Level 142 mmol/L (136-145)
== END | disposition home or self-care (01) ==
LOC: LAB 13:46
PROVIDERS: PCP Family Medicine; Visit Provider Internal Medicine Rheumatology
DX: M31.6 Other giant cell arteritis (principal); Z79.899 Other long term (current) drug therapy; M47.892 Other spondylosis, cervical region; I10 Essential (primary) hypertension
CPT/HCPCS: 36415; 80048; 85652; 86140

== ENCOUNTER → 2022-07-14 | Outpatient (CLI) | payer MEDICARE, SELFPAY ==
[2022-07-14 15:10] LABS: Anion Gap 5 (5-15); BUN 18 mg/dL (7-18); BUN/Creat Ratio 16.4 RATIO (10-20); CRP 5.94 mg/L (0.0-3.0); Calcium,Total 9.5 mg/dL (8.5-10.1); Chloride 109 mmol/L (98-107); EST Glomerular Filtration Rate 51 mL/min (>60); Est Glom Filt Rate - Afr Amer 62 mL/min (>60); Glucose 152 mg/dL (74-106); Potassium 4.1 mmol/L (3.5-5.1); Sodium Level 142 mmol/L (136-145)
[2022-07-14 15:31] LABS: Erythrocyte Sedimentation Rate 33 mm/hr (0-30)
== END | disposition home or self-care (01) ==
LOC: LAB 13:46
PROVIDERS: PCP Family Medicine; Referring Provider Internal Medicine Rheumatology; Visit Provider Internal Medicine Rheumatology
DX: Z79.899 Other long term (current) drug therapy (principal); M31.6 Other giant cell arteritis; M47.892 Other spondylosis, cervical region; I10 Essential (primary) hypertension
CPT/HCPCS: 36415; 80048; 85652; 86140

== ENCOUNTER → 2022-10-11 | Outpatient (CLI) | payer MEDICARE, SELFPAY ==
[2022-10-11 15:10] LABS: Erythrocyte Sedimentation Rate 18 mm/hr (0-30)
[2022-10-11 15:29] LABS: Anion Gap 5 (5-15); BUN 25 mg/dL (7-18); BUN/Creat Ratio 22.9 RATIO (10-20); CRP 4.23 mg/L (0.0-3.0); Chloride 110 mmol/L (98-107); Creatinine, Serum 1.09 mg/dL (0.55-1.02); EST Glomerular Filtration Rate 52 mL/min (>60); Est Glom Filt Rate - Afr Amer 63 mL/min (>60); Glucose 114 mg/dL (74-106); Potassium 4.2 mmol/L (3.5-5.1); Sodium Level 139 mmol/L (136-145)
== END | disposition home or self-care (01) ==
LOC: LAB 13:48
PROVIDERS: PCP Family Medicine; Visit Provider Internal Medicine Rheumatology
DX: M31.6 Other giant cell arteritis (principal); Z79.899 Other long term (current) drug therapy; M47.892 Other spondylosis, cervical region; I10 Essential (primary) hypertension
CPT/HCPCS: 36415; 80048; 85652; 86140

== ENCOUNTER → 2023-01-08 | Outpatient (CLI) | payer MEDICARE, SELFPAY ==
[2023-01-08 14:07] LABS: Erythrocyte Sedimentation Rate 11 mm/hr (0-30)
[2023-01-08 14:24] LABS: CRP 4.04 mg/L (0.0-3.0)
== END | disposition home or self-care (01) ==
LOC: LAB 13:50
PROVIDERS: PCP Family Medicine; Referring Provider Internal Medicine Rheumatology; Visit Provider Internal Medicine Rheumatology
DX: M31.6 Other giant cell arteritis (principal); Z79.899 Other long term (current) drug therapy
CPT/HCPCS: 36415; 85652; 86140

== ENCOUNTER → 2023-04-02 | Outpatient (CLI) | payer MEDICARE, SELFPAY ==
[2023-04-02 15:17] LABS: Erythrocyte Sedimentation Rate 13 mm/hr (0-30)
[2023-04-02 15:50] LABS: CRP 4.85 mg/L (0.0-3.0)
== END | disposition home or self-care (01) ==
LOC: LAB 13:44
PROVIDERS: PCP Family Medicine; Referring Provider Internal Medicine Rheumatology; Visit Provider Internal Medicine Rheumatology
DX: M31.6 Other giant cell arteritis (principal); Z79.899 Other long term (current) drug therapy
CPT/HCPCS: 36415; 85652; 86140

== ENCOUNTER → 2023-06-18 | Outpatient (CLI) | payer MEDICARE, SELFPAY ==
[2023-06-18 15:47] LABS: CRP < 2.90 mg/L (0.0-3.0)
[2023-06-18 15:48] LABS: Erythrocyte Sedimentation Rate 28 mm/hr (0-30)
== END | disposition home or self-care (01) ==
LOC: LAB 13:47
PROVIDERS: PCP Family Medicine; Referring Provider Internal Medicine Rheumatology; Visit Provider Internal Medicine Rheumatology
DX: M31.6 Other giant cell arteritis (principal); Z79.899 Other long term (current) drug therapy
CPT/HCPCS: 36415; 85652; 86140

== ENCOUNTER → 2023-09-21 | Outpatient (CLI) | payer MEDICARE, SELFPAY ==
[2023-09-21 15:16] LABS: Absolute Lymphocyte Count 1.02 X10^3/uL (0.83-4.51); Absolute Neutrophil Count 10.1 X10^3/uL (2.0-7.7); Basophil# 0.03 X10^3/uL; Basophil% 0.3 % (0-1); Eosinophil# 0.01 X10^3/uL; Eosinophils% 0.1 % (0-5); Hematocrit 42.4 % (37-47); Hemoglobin 12.9 g/dL (12.0-15.0); Lymphocyte # 1.02 X10^3/ul (0.83-4.51); Lymphocyte % 8.7 % (19-41); Mean Corp Hgb Conc 30.4 g/dL (32-36); Mean Corpuscular Hgb 28.2 pg (27.0-32.0); Mean Corpuscular Volume 92.6 fL (81-99); Mean Platelet Vol. 13.9 fl (6.2-12.0); Monocyte# 0.52 X10^3/uL; Monocyte% 4.5 % (0-10); NRBC Flagged by Analyzer 0 % (0-5); Neutrophil # 10.05 X10^3/uL (2.7-7.7); Neutrophil % 86.1 % (47-70); Platelet Count 203 K/mm3 (150-450); RBC Distribution Width CV 15.2 % (11.6-14.6); RBC Distribution Width SD 51.5 fl (35.1-43.9); Red Blood Count 4.58 M/mm3 (4.2-5.4); White Blood Count 11.7 K/mm3 (4.4-11.0)
[2023-09-21 15:19] LABS: Erythrocyte Sedimentation Rate 11 mm/hr (0-30)
[2023-09-21 15:37] LABS: ALB/GLOB Ratio 1.1 RATIO (0.9-2.4); AST(SGOT) 17 U/L (15-37); Alanine Aminotransfer ALT/SGPT 16 U/L (13-56); Albumin, Serum 3.5 g/dL (3.2-5.0); Alkaline Phosphatase 98 U/L (45-117); Anion Gap 3 (5-15); BUN 18 mg/dL (7-18); BUN/Creat Ratio 17.1 RATIO (10-20); Calcium,Total 9.1 mg/dL (8.5-10.1); Chloride 111 mmol/L (98-107); Creatinine, Serum 1.05 mg/dL (0.55-1.02); EST Glomerular Filtration Rate 54 mL/min (>60); Est Glom Filt Rate - Afr Amer 65 mL/min (>60); Globulin 3.3 g/dL (2.2-4.2); Glucose 86 mg/dL (74-106); Potassium 3.9 mmol/L (3.5-5.1); Protein, Total 6.8 g/dL (6.4-8.2); Sodium Level 141 mmol/L (136-145)
== END | disposition home or self-care (01) ==
LOC: LAB 13:49
PROVIDERS: PCP Family Medicine; Referring Provider Internal Medicine Rheumatology; Visit Provider Internal Medicine Rheumatology
DX: M31.6 Other giant cell arteritis (principal); Z79.899 Other long term (current) drug therapy
CPT/HCPCS: 36415; 80053; 85025; 85652; 86140

== ENCOUNTER → 2023-12-18 | Outpatient (CLI) | payer MEDICARE, SELFPAY ==
[2023-12-18 15:16] LABS: Absolute Lymphocyte Count 1.18 X10^3/uL (0.83-4.51); Absolute Neutrophil Count 7.7 X10^3/uL (2.0-7.7); Basophil# 0.02 X10^3/uL; Basophil% 0.2 % (0-1); Eosinophil# 0.03 X10^3/uL; Eosinophils% 0.3 % (0-5); Hematocrit 43.1 % (37-47); Hemoglobin 13.5 g/dL (12.0-15.0); Lymphocyte # 1.18 X10^3/ul (0.83-4.51); Lymphocyte % 12.6 % (19-41); Mean Corp Hgb Conc 31.3 g/dL (32-36); Mean Corpuscular Hgb 28.8 pg (27.0-32.0); Mean Corpuscular Volume 92.1 fL (81-99); Monocyte# 0.43 X10^3/uL; Monocyte% 4.6 % (0-10); NRBC Flagged by Analyzer 0 % (0-5); Neutrophil # 7.66 X10^3/uL (2.7-7.7); Neutrophil % 81.9 % (47-70); Platelet Count 229 K/mm3 (150-450); RBC Distribution Width CV 14.9 % (11.6-14.6); RBC Distribution Width SD 50.4 fl (35.1-43.9); Red Blood Count 4.68 M/mm3 (4.2-5.4); White Blood Count 9.4 K/mm3 (4.4-11.0)
[2023-12-18 16:07] LABS: ALB/GLOB Ratio 0.9 RATIO (0.9-2.4); AST(SGOT) 13 U/L (15-37); Alanine Aminotransfer ALT/SGPT 14 U/L (13-56); Albumin, Serum 3.3 g/dL (3.2-5.0); Alkaline Phosphatase 81 U/L (45-117); Anion Gap 6 (5-15); BUN 23 mg/dL (7-18); BUN/Creat Ratio 21.1 RATIO (10-20); CRP < 2.90 mg/L (0.0-3.0); Calcium,Total 9.2 mg/dL (8.5-10.1); Chloride 108 mmol/L (98-107); Creatinine, Serum 1.09 mg/dL (0.55-1.02); EST Glomerular Filtration Rate 52 mL/min (>60); Est Glom Filt Rate - Afr Amer 63 mL/min (>60); Globulin 3.6 g/dL (2.2-4.2); Glucose 106 mg/dL (74-106); Potassium 4.2 mmol/L (3.5-5.1); Protein, Total 6.9 g/dL (6.4-8.2); Sodium Level 138 mmol/L (136-145)
[2023-12-18 16:17] LABS: Erythrocyte Sedimentation Rate 13 mm/hr (0-30)
== END | disposition home or self-care (01) ==
LOC: LAB 13:53
PROVIDERS: PCP Family Medicine; Referring Provider Internal Medicine Rheumatology; Visit Provider Internal Medicine Rheumatology
DX: M31.6 Other giant cell arteritis (principal); Z79.899 Other long term (current) drug therapy
CPT/HCPCS: 36415; 80053; 85025; 85652; 86140

== ENCOUNTER → 2024-03-12 | Outpatient (CLI) | payer MEDICARE, SELFPAY ==
[2024-03-12 14:08] LABS: Absolute Neutrophil Count 10.2 X10^3/uL (2.0-7.7); Basophil# 0.03 X10^3/uL; Basophil% 0.2 % (0-1); Eosinophil# 0.06 X10^3/uL; Eosinophils% 0.5 % (0-5); Hematocrit 39.7 % (37-47); Hemoglobin 12.5 g/dL (12.0-15.0); Lymphocyte % 10.8 % (19-41); Mean Corp Hgb Conc 31.5 g/dL (32-36); Mean Corpuscular Hgb 28.5 pg (27.0-32.0); Mean Corpuscular Volume 90.4 fL (81-99); Monocyte# 0.43 X10^3/uL; Monocyte% 3.6 % (0-10); NRBC Flagged by Analyzer 0 % (0-5); Neutrophil # 10.18 X10^3/uL (2.7-7.7); Neutrophil % 84.5 % (47-70); Platelet Count 285 K/mm3 (150-450); RBC Distribution Width SD 49.7 fl (35.1-43.9); Red Blood Count 4.39 M/mm3 (4.2-5.4); White Blood Count 12.1 K/mm3 (4.4-11.0)
[2024-03-12 14:33] LABS: Erythrocyte Sedimentation Rate 53 mm/hr (0-30)
[2024-03-12 14:35] LABS: ALB/GLOB Ratio 0.8 RATIO (0.9-2.4); AST(SGOT) 14 U/L (15-37); Alanine Aminotransfer ALT/SGPT 12 U/L (13-56); Alkaline Phosphatase 68 U/L (45-117); Anion Gap 5 (5-15); BUN 22 mg/dL (7-18); BUN/Creat Ratio 18.3 RATIO (10-20); Calcium,Total 8.9 mg/dL (8.5-10.1); Chloride 110 mmol/L (98-107); EST Glomerular Filtration Rate 46 mL/min (>60); Est Glom Filt Rate - Afr Amer 56 mL/min (>60); Globulin 3.9 g/dL (2.2-4.2); Glucose 129 mg/dL (74-106); Potassium 4.2 mmol/L (3.5-5.1); Protein, Total 6.9 g/dL (6.4-8.2); Sodium Level 139 mmol/L (136-145)
== END | disposition home or self-care (01) ==
PROVIDERS: PCP Family Medicine; Referring Provider Internal Medicine Rheumatology; Visit Provider Internal Medicine Rheumatology
DX: M31.6 Other giant cell arteritis (principal); Z79.899 Other long term (current) drug therapy; M47.892 Other spondylosis, cervical region; I10 Essential (primary) hypertension
CPT/HCPCS: 36415; 80053; 85025; 85652; 86140

== ENCOUNTER → 2024-03-25 | Outpatient (CLI) | payer MEDICARE, SELFPAY ==
[2024-03-25 14:20] LABS: Erythrocyte Sedimentation Rate 52 mm/hr (0-30)
== END | disposition home or self-care (01) ==
LOC: LAB 13:55
PROVIDERS: PCP Family Medicine; Referring Provider Internal Medicine Rheumatology; Visit Provider Internal Medicine Rheumatology
DX: M31.6 Other giant cell arteritis (principal); Z79.899 Other long term (current) drug therapy
CPT/HCPCS: 36415; 85652; 86140

== ENCOUNTER → 2024-04-11 | Outpatient (CLI) | payer MEDICARE, SELFPAY ==
[2024-04-11 14:48] LABS: Erythrocyte Sedimentation Rate 42 mm/hr (0-30)
== END | disposition home or self-care (01) ==
LOC: LAB 13:45
PROVIDERS: PCP Family Medicine; Referring Provider Internal Medicine Rheumatology; Visit Provider Internal Medicine Rheumatology
DX: M31.6 Other giant cell arteritis (principal); Z79.899 Other long term (current) drug therapy
CPT/HCPCS: 36415; 85652; 86140

== ENCOUNTER → 2024-04-14 | Outpatient (CLI) | payer MEDICARE, SELFPAY ==
[2024-04-16 22:07] LABS: QNTFERON TB Mitogen Value 0.13 IU/mL (.); QNTFERON TB Nil Value 0 IU/mL (.); QNTFERON TB1+ Ag Value 0 IU/mL (.); QNTFERON TB2+ Ag Value 0 IU/mL (.); QNTIFERON TB Positive Criteria Indeterminate (Negative)
== END | disposition home or self-care (01) ==
PROVIDERS: PCP Family Medicine; Referring Provider Internal Medicine Rheumatology; Visit Provider Internal Medicine Rheumatology
DX: M31.6 Other giant cell arteritis (principal); Z79.899 Other long term (current) drug therapy
CPT/HCPCS: 36415; 86480

== ENCOUNTER → 2024-05-09 | Outpatient (CLI) | payer MEDICARE, SELFPAY ==
[2024-05-09 14:10] LABS: Erythrocyte Sedimentation Rate 32 mm/hr (0-30)
== END | disposition home or self-care (01) ==
LOC: LAB 13:45
PROVIDERS: PCP Family Medicine; Referring Provider Internal Medicine Rheumatology; Visit Provider Internal Medicine Rheumatology
DX: M31.6 Other giant cell arteritis (principal); Z79.899 Other long term (current) drug therapy
CPT/HCPCS: 36415; 85652; 86140

== ENCOUNTER → 2024-09-08 | Outpatient (CLI) | payer MEDICARE, SELFPAY ==
[2024-09-08 15:02] LABS: Erythrocyte Sedimentation Rate 7 mm/hr (0-30)
[2024-09-08 15:06] LABS: Absolute Lymphocyte Count 0.62 X10^3/uL (0.83-4.51); Absolute Neutrophil Count 10.7 X10^3/uL (2.0-7.7); Basophil# 0.01 X10^3/uL; Basophil% 0.1 % (0-1); Hematocrit 42.6 % (37-47); Hemoglobin 13.5 g/dL (12.0-15.0); Lymphocyte # 0.62 X10^3/ul (0.83-4.51); Lymphocyte % 5.3 % (19-41); Mean Corp Hgb Conc 31.7 g/dL (32-36); Mean Corpuscular Hgb 28.5 pg (27.0-32.0); Mean Corpuscular Volume 90.1 fL (81-99); Mean Platelet Vol. 12.8 fl (6.2-12.0); Monocyte# 0.21 X10^3/uL; Monocyte% 1.8 % (0-10); NRBC Flagged by Analyzer 0 % (0-5); Neutrophil # 10.74 X10^3/uL (2.7-7.7); Neutrophil % 92.3 % (47-70); Platelet Count 190 K/mm3 (150-450); RBC Distribution Width CV 16.2 % (11.6-14.6); RBC Distribution Width SD 53.9 fl (35.1-43.9); Red Blood Count 4.73 M/mm3 (4.2-5.4); White Blood Count 11.6 K/mm3 (4.4-11.0)
[2024-09-08 15:34] LABS: ALB/GLOB Ratio 0.9 RATIO (0.9-2.4); AST(SGOT) 12 U/L (15-37); Alanine Aminotransfer ALT/SGPT 10 U/L (13-56); Albumin, Serum 3.1 g/dL (3.2-5.0); Alkaline Phosphatase 64 U/L (45-117); Anion Gap 7 (5-15); BUN 25 mg/dL (7-18); BUN/Creat Ratio 21.4 RATIO (10-20); CRP < 2.90 mg/L (0.0-3.0); Calcium,Total 9.2 mg/dL (8.5-10.1); Chloride 111 mmol/L (98-107); Creatinine, Serum 1.17 mg/dL (0.55-1.02); EST Glomerular Filtration Rate 48 mL/min (>60); Est Glom Filt Rate - Afr Amer 58 mL/min (>60); Globulin 3.6 g/dL (2.2-4.2); Glucose 136 mg/dL (74-106); Potassium 4.1 mmol/L (3.5-5.1); Protein, Total 6.7 g/dL (6.4-8.2); Sodium Level 142 mmol/L (136-145)
== END | disposition home or self-care (01) ==
LOC: LAB 13:51
PROVIDERS: PCP Family Medicine; Referring Provider Internal Medicine Rheumatology; Visit Provider Internal Medicine Rheumatology
DX: M31.6 Other giant cell arteritis (principal); Z79.899 Other long term (current) drug therapy
CPT/HCPCS: 36415; 80053; 85025; 85652; 86140

== ENCOUNTER → 2024-10-06 | Outpatient (CLI) | payer MEDICARE, SELFPAY ==
[2024-10-06 15:10] LABS: Erythrocyte Sedimentation Rate 11 mm/hr (0-30)
[2024-10-07 03:30] LABS: CRP < 3.00 mg/L (0.0-3.0)
== END | disposition home or self-care (01) ==
LOC: LAB 13:49
PROVIDERS: PCP Family Medicine; Referring Provider Internal Medicine Rheumatology; Visit Provider Internal Medicine Rheumatology
DX: M31.6 Other giant cell arteritis (principal); Z79.899 Other long term (current) drug therapy
CPT/HCPCS: 36415; 85652; 86140

== ENCOUNTER → 2024-12-05 | Outpatient (CLI) | payer MEDICARE, SELFPAY ==
[2024-12-05 14:57] LABS: CRP < 3.00 mg/L (0.0-3.0)
[2024-12-05 15:17] LABS: Erythrocyte Sedimentation Rate 12 mm/hr (0-30)
== END | disposition home or self-care (01) ==
LOC: LAB 13:45
PROVIDERS: PCP Family Medicine; Referring Provider Internal Medicine Rheumatology; Visit Provider Internal Medicine Rheumatology
DX: M31.6 Other giant cell arteritis (principal); Z79.899 Other long term (current) drug therapy
CPT/HCPCS: 36415; 85652; 86140

== ENCOUNTER → 2025-03-02 | Outpatient (CLI) | payer MEDICARE, SELFPAY ==
[2025-03-02 15:45] LABS: CRP < 3.00 mg/L (0.0-3.0)
== END | disposition home or self-care (01) ==
LOC: LAB 13:34
PROVIDERS: PCP Family Medicine; Referring Provider Internal Medicine Rheumatology; Visit Provider Internal Medicine Rheumatology
DX: M31.6 Other giant cell arteritis (principal); Z79.899 Other long term (current) drug therapy
CPT/HCPCS: 36415; 85652; 86140

== ENCOUNTER → 2025-05-15 | Outpatient (CLI) | payer MEDICARE, SELFPAY ==
[2025-05-15 15:30] LABS: CRP < 3.00 mg/L (0.0-3.0)
== END | disposition home or self-care (01) ==
LOC: LAB 13:46
PROVIDERS: PCP Family Medicine; Referring Provider Internal Medicine Rheumatology; Visit Provider Internal Medicine Rheumatology
DX: M31.6 Other giant cell arteritis (principal); Z79.899 Other long term (current) drug therapy
CPT/HCPCS: 36415; 85652; 86140